=== PATIENT | female | born 1995 | race Caucasian/White ===

== ENCOUNTER 2018-02-17 | Inpatient (IN) ==
[2018-02-17] MEDS ORDERED: Naloxone 0.4 MG/ML INJ IVP PRN (00:16)
[2018-02-17] MEDS ORDERED: Famotidine 20 MG/2 ML VIAL IVP PRN (00:16)
[2018-02-17] MEDS ORDERED: *HR* Nalbuphine 10 MG/ML AMPUL IVP PRN (00:16)
[2018-02-17] MEDS ORDERED: Metoclopramide 10 MG/2 ML VIAL IVP PRN (00:16)
[2018-02-17 00:29] LABS: Basophils % 0.3 %; Eosinophils # 0.1 K/mcL (0.0-0.6); Eosinophils % 0.5 %; Hematocrit 37.8 % (35.3-44.9); Hemoglobin 13.4 g/dL (11.5-15.4); Immature Granulocytes % 0.5 % (0-4); Lymphocytes # 2.2 K/mcL (0.6-4.6); Lymphocytes % 21.8 %; Mean Corpuscular HGB Conc 35.4 g/dL (31.6-35.5); Mean Corpuscular Hemoglobin 32.2 pg (28.0-33.3); Mean Corpuscular Volume 90.9 fL (83.0-100.0); Mean Platelet Volume 10.6 fL (9.4-12.4); Monocytes # 0.7 K/mcL (0.0-1.3); Monocytes % 6.8 %; Neutrophils # 7.2 K/mcL (1.6-8.9); Platelet Count 205 K/mcL (140-400); Red Blood Count 4.16 M/mcL (3.82-4.97); Red Cell Distribution Width 13.1 % (11.5-14.5); Segmented Neutrophils % 70.1 %
[2018-02-17] MEDS ORDERED: Ringers Solution, Lactated 1,000 ML IVC SCH (00:30)
[2018-02-17 00:49] LABS: Amphetamine Screen,Urine Negative ng/mL (Cutoff=1000); Barbiturate Screen,Urine Negative ng/mL (Cutoff=200); Benzodiazepines Screen,Urine Negative ng/mL (Cutoff=200); Cannabinoid Screen,Urine Negative ng/mL (Cutoff = 50); Cocaine Screen,Urine Negative ng/mL (Cutoff= 300); Opiate Screen,Urine Negative ng/mL (Cutoff=300); Phencyclidine Screen,Urine Negative ng/mL (Cutoff=25)
[2018-02-17] MEDS: miSOPROStol 100 MCG TABLET PO PRN ×2 (00:54→06:53)
--- NOTE | 2018-02-17 01:39 | OB/GYN History & Physical ---
Date of Encounter: 02/17/18 Time of Encounter: 01:36 Assessment and Plan (1) Post-dates Current visit: Yes Status: Acute Admit for IOL. Cytotec for induction. Epidural when requested. Anticipate . POC per Dr. Barr. Qualifiers: Post-term type: 40-42 weeks gestation Qualified Code(s): O48.0 - Post-term (2) 40 weeks gestation of Current visit: Yes Status: Acute (3) Umbilical cord, arterial anomaly Current visit: Yes Status: Acute History of Present Illness Chief complaint: IOL HPI: Ms. Parry is a 22 year old female presenting at 40w5d for IOL. This has been complicated by persistent right umbilical vein. No other complaints or problems. Blood type O positive Rubella immune Serologies negative GBS negative Past Med Surg Social Fam HX - Past Medical History Medical history: non-contributory Psychiatric history: no psych history - Past Surgical History Surgical History: no surgical history - Social History Smoking Status: Former smoker Smokeless Tobacco Status: No Alcohol use: none, occasionally Drug use: none - Family History Grandmother Adopted: No Family Member Ethnicity: Non- Twin of Family Member: Yes, Fraternal Living Status: Still Living Hx Family Cardiac Disorders: Yes Hx Family Respiratory Disorders: No Hx Family Cancer: No Hx Family GI Disorders: No Hx Family Genitourinary Disorders: No Hx Family Endocrine Disorder: No Hx Family Musculoskeletal Disorders: No Hx Family Neuromuscular Disorders: No Hx Family Neurologic Disorders: No Hx Family HEENT Disorders: No Hx Family Autoimmune Disorders: No Hx Family Reproductive Disorders: No Hx Family Psychosocial Disorders: No Hx Family Medical Disorders: No Obstetrical History - Pregnancies : 1 Medications and Allergies Rny714/Iron Fumarate/FA/Dss [ 19 Tablet] 1 tab PO DAILY 02/17/18 [ History] 3 Allergy/AdvReac Type Severity Reaction Status Date / Time No Known Allergies Allergy Verified 04/02/15 10:28 Review of System OB All systems PM: reviewed and no additional remarkable complaints except as stated Exam - Constitutional Constitutional: well developed, well nourished, no acute distress - HEENT HEENT: Mucus Membranes Moist - Lungs Respiratory exam: CTAB - Cardiovascular Cardiovascular exam: RRR - Abdomen Abdomen: Present: gravid, non tender - Extremities Extremities exam: normal inspection - Vulva Vulva: bilateral: normal - Vagina Vagina: Present: normal moisture - Cervix Dilation: 1 Effacement: 50 Station: -3 - Anus/Rectum Anus/Rectum: Present: normal perianal skin Results Result Diagrams: 02/17/18 00:10 All other labs normal. - VTE Reasons for not Prescribing Prophylaxis: Treatment not Indicated - Low risk for VTE
--- NOTE | 2018-02-17 08:25 | OB Labor Progress Note ---
Date of Encounter: 02/17/18 Time of Encounter: 08:22 Labor Progress Note - Subjective Subjective: Patient is doing well with then nubain she just received. She denies any concerns. - Cervix Cervix: 1.5/90/-2 - Heart Tones Heart Tones: 145, category 1. + scalp stim with cervical check - Texola Texola: q 1.5-2 minutes - Interventions Interventions: AROM with clear fluid on attempt at placing jain. Jain removed and IUPC placed without difficulty - Plan Plan: Continue with induction.
[2018-02-17] MEDS ORDERED: EPHEDrine 50 MG/ML VIAL IVP PRN (08:55)
[2018-02-17] MEDS ORDERED: Ringers Solution, Lactated 500 ML IVC ONE (08:55)
[2018-02-17] MEDS ORDERED: Epidural Premix (fent/bupiv) 110 ML EP SCH (09:00)
[2018-02-17] MEDS ORDERED: Lidocaine -MPF 1% 5 ML AMPUL ONE (09:07)
--- NOTE | 2018-02-17 10:05 | Anesthesia Evaluation PreOp ---
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 Any Significant HX Other Medical History: Denies Any Significant HX Anesthesia History: No Prior Anesthetic Complications : Yes Alcohol Use: none, occasionally Drug use: none Medications and Allergies Hym827/Iron Fumarate/FA/Dss [ 19 Tablet] 1 tab PO DAILY 02/17/18 [ History] 3 Allergy/AdvReac Type Severity Reaction Status Date / Time No Known Allergies Allergy Verified 04/02/15 10:28 - Meds/Allergy Pre-op Review Medications Reviewed: Yes Allergies Reviewed: Yes Beta Blockers on Current Med List: No Anesthesia Results - Labs 02/17/18 00:10 Anesthesia Exam O2 Sat Height 1.55 m Weight 75.6 kg NPO (# of Hours): 2 Pain Scale: 10 Pain Scale Used: Numeric (1 - 10) - HEENT Pupil (Motor): Pupils equal Mallampati: II Teeth: Normal Oral Opening: Greater than 3 - CHILD CARE ASSOCIATE TEACHER LOC: Oriented CHILD CARE ASSOCIATE TEACHER Motor: Normal RUE, Normal LUE, Normal RLE, Normal LLE, Normal Face CHILD CARE ASSOCIATE TEACHER Sensory: Normal: RUE, LUE, RLE, LLE, Face - Cardiac Rhythm: Regular Murmur: None JVD: No Carotid Bruit: No - Pulmonary Breath Sounds: bilateral Clear Respiratory Effort: Symmetrical Anesthesia Assess/Plan ASA Score: 2 Modified [place] Scale for Level of Consciousness: Cooperative, oriented, and tranquil Anesthetic Plan: General (plan b), Regional (plan a) Autologous Blood: Yes Monitoring Plan: Standard Monitors
--- NOTE | 2018-02-17 10:08 | Anesthesia Procedures ---
Date of Encounter: 02/17/18 Time of Encounter: 10:05 Procedures: Anesthesia - Epidural/Spinal Patient ID/Chart reviewed: Yes Patient examined: Yes OB Eval: Gestational age: 40 OB Eval: : 1 OB Eval: Hx Para: 0 OB Eval: Dilated at (cm): 1 OB Eval: Contractions: Non-stressed pattern Consent Obtained: Yes Supplemental Oxygen: None/Room Air Site Prep: Aseptic Technique, Sterile prep and drape, Povidone-Iodine 1% Patient position: upright Local Anesthetic: Lidocaine 1% Amount of Local Anesthetic used: 3 Touhy Needle Gauge: 18 Touhy Needle Depth (cm): 7 Catheter Depth at Skin (cm): 20 Test Dose (1.5% Lido + Epi): Volume given (mls): 5 Test Dose Result: Negative Loading Dose: Other: 10mls of epidural pharm bag premix solution Loading Dose Administered: Thru Catheter Infusion Med: 0.125% Bupivacaine w/ 2 mcg/ml Fentanyl Infusion Rate (mls/hr): 14 ([id number]) Catheter Secured in Place: Tegaderm, Tape Interspace Used: L4-L5 Loss of Resistance (RACHAEL): Yes Blood: No CSF: No Paresthesia: No Procedure: pt tolerated procedure well. no complications. vss. fhr stable. see nursing notes for complete vitals.
[2018-02-17] MEDS ORDERED: Oxytocin 20 units/ LR 1000 mL 20 UNIT/1,000 ML BAG IVC SCH (12:45)
[2018-02-17] MEDS: Ondansetron 4 MG/2 ML VIAL IVP PRN (16:58)
[2018-02-17] MEDS ORDERED: *HR* FentaNYL (PF) 100 MCG/2 ML VIAL ONE (17:05)
[2018-02-17] MEDS ORDERED: *HR* ROPIVACAINE 1% PF 100 MG/10 ML VIAL ONE (17:06)
--- NOTE | 2018-02-17 17:14 | Anesthesia Progress Note ---
Date of Encounter: 02/17/18 Time of Encounter: 17:13 Anesthesia Note - Note Note: 02/17/18 17:13 called for increased pain during contractions. 8cm. vss. fhr stable. bolus given of 2% lido 3ml and 1% ropi 3ml with 100mcg fentanyl. gtt increased to 18ml /hr.
--- NOTE | 2018-02-17 21:03 | OB Labor Progress Note ---
Date of Encounter: 02/17/18 Time of Encounter: 21:02 Labor Progress Note - Subjective Subjective: Pt comfortable with epidural - Cervix Cervix: 8-9 - Heart Tones Heart Tones: 150/moderate/early and variables/ - Mokena Mokena: 2-3 - Plan Plan: frequent repositioning anticipate
[2018-02-18] MEDS: Ondansetron 4 MG/2 ML VIAL IVP PRN (01:46)
[2018-02-18] MEDS ORDERED: Chloroprocaine/PF 20 ML VIAL INFILT ONE (03:41)
[2018-02-18] MEDS ORDERED: Water for inj. (sterile) 20 ML IV ONE (03:48)
[2018-02-18] MEDS ORDERED: Ondansetron 4 MG/2 ML VIAL ONE (03:57)
[2018-02-18] MEDS ORDERED: Dexamethasone 4 MG/ML VIAL ONE (03:57)
[2018-02-18] MEDS ORDERED: Propofol 500 MG/50 ML INFUS..BTL ONE (04:00)
[2018-02-18] MEDS ORDERED: *HR* Succinylcholine 200 MG/10 ML VIAL IVP ONE (04:00)
[2018-02-18] MEDS ORDERED: Morphine Sulfate/PF 5mg/10mL Vial ONE (04:01)
[2018-02-18] MEDS ORDERED: Water for inj. (sterile) 10 ML IV ONE (04:04)
[2018-02-18] MEDS ORDERED: *HR* Meperidine 25 MG/ML SYRINGE IVP PRN (04:15)
[2018-02-18] MEDS ORDERED: Ondansetron 4 MG/2 ML VIAL IVP ONE (04:15)
[2018-02-18] MEDS ORDERED: *HR* HYDROmorphone 2 MG TABLET PO PRN (04:15)
[2018-02-18] MEDS ORDERED: Ringers Solution, Lactated 1,000 ML IVC SCH (04:15)
[2018-02-18] MEDS ORDERED: *HR* Promethazine 25 MG/ML VIAL IVP PRN (04:15)
[2018-02-18] MEDS ORDERED: *HR* Morphine 2 MG/ML SYRINGE IVP PRN ×2 (04:15→06:52)
[2018-02-18] MEDS ORDERED: *HR* OxyCODONE Immed Rel 5 MG TABLET PO PRN ×2 (04:15→08:12)
[2018-02-18] MEDS ORDERED: Albuterol 2.5 MG/3 ML NEBULIZER IH ONE (04:15)
[2018-02-18] MEDS ORDERED: Acetaminophen IV 1,000 MG/100 ML INFUS..BTL IVPB ONE (04:15)
[2018-02-18] MEDS ORDERED: *HR* Promethazine 25 MG/ML VIAL ONE (04:47)
[2018-02-18] MEDS ORDERED: Simethicone 80 MG TAB.CHEW PO PRN (08:12)
[2018-02-18] MEDS ORDERED: Oxytocin 20 units/ LR 1000 mL 20 UNIT/1,000 ML BAG IVC SCH ×2 (08:12)
[2018-02-18] MEDS ORDERED: Naloxone 0.4 MG/ML INJ IVP PRN (08:12)
[2018-02-18] MEDS ORDERED: Sennosides 8.6 MG TABLET PO PRN (08:12)
[2018-02-18] MEDS ORDERED: Acetaminophen 325 MG TABLET PO PRN ×2 (08:12→21:39)
[2018-02-18] MEDS ORDERED: Metoclopramide 10 MG/2 ML VIAL IVP PRN (08:12)
[2018-02-18] MEDS ORDERED: Ondansetron 4 MG/2 ML VIAL IVP PRN (08:12)
[2018-02-18] MEDS: Prenatal Vit/FA 1 EACH TABLET PO SCH (09:00)
--- NOTE | 2018-02-18 13:50 | OB/GYN Procedure Note ---
Section - Date of procedure: 02/18/18 Preop diagnosis: category 3 FHT tracing Post-op diagnosis: same Procedure: section, primary low transverse Surgeon: Claire Almanza Blood Loss: 500 Was there an ob gyn physician assistant present: Yes Pump Station Operator: Marlen Mooney Anesthesiologist: Sara Barahona Piano Case Maker: Moe Blackwell Anesthesia Type: General section complications: none Disposition: L&D Recovery Room Specimens: Cord blood, Cord gasses - Infant (s) A Infant Delivery Date: 02/18/18 Infant Delivery Time: 03:56 Presentation: vertex Gender: Male Viability: Viable Pounds: 8 Ounces: 7 Gram Weight: 3.815 kg at 1 minute: 6 at 5 minutes: 8 Shoulder Dystocia: not encountered Specimens collected: cord blood, venous cord gases, arterial cord gases Placenta: spontaneous Cord: 3 umbilical vessels - Narrative Narrative: Patient was taken to the operative suite and her epidural was dosed. She was then prepped and draped in normal sterile fashion in the dorsal supine position. Timeout was then performed. Antibiotics were given at room time. SCDs are on and active. Pfannenstiel skin incision is then made and carried through to underlying layer of fascia with the Bovie. The fascia was then incised in the midline and incision extended laterally with the Narayanan scissors. The fascia was tented up and dissected off the rectus muscles sharply. The rectus muscles were in the midline and the peritoneum was tented up and entered sharply with the Metzenbaum scissors. The peritoneal incision was then extended bluntly. At this point in the procedure the epidural was inadequate for anesthesia patient was placed under general anesthesia without difficulty. The bladder blade was then inserted. A low transverse uterine incision was then made. The vertex was brought to the incision and a Kiwi vacuum was placed. The infant was delivered using fundal pressure. There was no nuchal cord. Cord was clamped and cut. was handed to waiting nursery staff. A segment of cord was collected for cord gases. Cord blood was collected. Placenta delivered spontaneously complete and intact with a three-vessel cord. The uterus was cleared of all clots and debris using moist laparotomy sponge. The uterine incision was then closed using 0 Vicryl in a running locked fashion. A second layer of the same suture was used to obtain excellent hemostasis. The abdomen was then cleared of all clots and debris using copious irrigation. The bladder was instilled with 200 mL sterile bladder and found to be intact. The fascial incision was then closed using 0 Vicryl in a running fashion. The skin was closed using 4-0 Vicryl in a subcuticular fashion. Steri- Strips and sterile dressing are then placed. Mother is taken to recovery in stable condition. had previously been taken to the nursery in stable condition.
[2018-02-18] MEDS: Ibuprofen 600 MG TABLET PO PRN ×2 (17:29→23:32)
[2018-02-19] MEDS: Ibuprofen 600 MG TABLET PO PRN ×2 (05:55→16:07)
[2018-02-19 06:15] LABS: Basophils % 0.2 %; Eosinophils # 0.1 K/mcL (0.0-0.6); Eosinophils % 0.7 %; Hematocrit 32.2 % (35.3-44.9); Immature Granulocytes % 0.6 % (0-4); Lymphocytes # 1.8 K/mcL (0.6-4.6); Lymphocytes % 14.8 %; Mean Corpuscular HGB Conc 34.2 g/dL (31.6-35.5); Mean Corpuscular Hemoglobin 32.3 pg (28.0-33.3); Mean Corpuscular Volume 94.4 fL (83.0-100.0); Mean Platelet Volume 10.3 fL (9.4-12.4); Monocytes # 0.7 K/mcL (0.0-1.3); Monocytes % 6.2 %; Neutrophils # 9.2 K/mcL (1.6-8.9); Platelet Count 153 K/mcL (140-400); Red Blood Count 3.41 M/mcL (3.82-4.97); Red Cell Distribution Width 13.7 % (11.5-14.5); Segmented Neutrophils % 77.5 %
[2018-02-19] MEDS: Prenatal Vit/FA 1 EACH TABLET PO SCH (08:31)
--- NOTE | 2018-02-19 10:20 | OB/GYN Progress Note ---
Date of Encounter: 02/19/18 Time of Encounter: 10:18 - Assessment and Plan (1) Status post section Current Visit: Yes Status: Acute Stable POD#1 Continue current management plan anticipate discharge tomorrow Subjective - Subjective Interval history: Pain well managed on po pain medication, +flatus, tolerates diet, . Patient reports: appetite normal, voiding normally, pain well controlled, ambulating normally : doing well, nursing well Objective - Vital Signs Latest vital signs: Vital Signs Temp Pulse Pulse Resp BP Pulse Ox 02/19/18 09:48 84 16 02/19/18 08:41 97.9 F 93 16 107/63 97 02/18/18 23:33 97.6 F 97 18 112/73 97 02/18/18 19:35 97.7 F 99 16 114/73 99 02/18/18 15:35 98.3 F 101 16 115/72 02/18/18 10:39 98.9 F 77 16 119/75 98 Intake and Output 02/18/18 02/19/18 02/19/18 23:59 07:59 15:59 Intake Total 800 / 800 200 / 200 Output Total 1100 / 1100 800 / 800 Balance -300 / -300 -600 / -600 Intake: Oral 800 / 800 200 / 200 Output: Urine 550 / 550 Catheter 550 / 550 800 / 800 Other: Meal Dinner Percent of Meal Consumed 100% - Exam Lungs: bilateral: normal Chest: Normal S1, Normal S2 Extremities: Present: edema Abdomen: Present: soft Incision: Present: dressed Uterus: Present: firm (U) - Labs Labs: Laboratory Results - last 24 hr 02/19/18 05:52 WBC 11.8 H RBC 3.41 L Hgb 11.0 L D Hct 32.2 L MCV 94.4 MCH 32.3 MCHC 34.2 RDW 13.7 Plt Count 153 MPV 10.3 Immature Gran % 0.6 Seg Neutrophils % 77.5 Lymphocytes % 14.8 Monocytes % 6.2 Eosinophils % 0.7 Basophils % 0.2 Neutrophils # 9.2 H Lymphocytes # 1.8 Monocytes # 0.7 Eosinophils # 0.1 Basophils # 0.0
[2018-02-19] MEDS: *HR* OxyCODONE/APAP 5/325 TABLET PO PRN ×2 (12:05→21:37)
[2018-02-20] MEDS: Ibuprofen 600 MG TABLET PO PRN ×2 (01:52→11:22)
[2018-02-20] MEDS: *HR* OxyCODONE/APAP 5/325 TABLET PO PRN (06:00)
--- NOTE | 2018-02-20 07:57 | Anesthesia Progress Note ---
Date of Encounter: 02/20/18 Time of Encounter: 07:38 Anesthesia Note - Note Note: 02/20/18 07:50 RN questioned about right leg issues, upon questioning the patient reports some minor weakness in right leg when walking and that her right leg feels funny. has been ambulating with assistance, and reports that her symptoms have improved from what they were after her . questions about pre-existing problems sensory/motor patient denied all questions of pain, radiculopathies, pins and needles feelings, no dependent or situational sensory/motor issues. she states was only in lithotomy and pushing for 30min. upon exam minor weakness noted to L4-5 to ankle dorsiflexion 3/5 vs 5/5 to right. upon questioning OB physicians consult was placed for neuro eval. for questionable peroneal nerve damage. patient updated on course of treatment. epidural 02/17 =1000 easy placement, patient reports it was easy no problems bolus epidural 02/17 =1715 STAT 02/18 =0400 reports she was numb but was freaking out that is why she was put asleep, no reported difficulties with cath removal. please call anesthesia for any questions or concerns. thank you for calling us in regards to this condition. 02/20/18 07:59 02/20/18 08:15
[2018-02-20 08:10] VITALS: BP 118/76
[2018-02-20] MEDS: Prenatal Vit/FA 1 EACH TABLET PO SCH (11:23)
--- NOTE | 2018-02-20 16:24 | Neurology - Consult Note ---
Date of Encounter: 02/20/18 Time of Encounter: 16:20 Assessment and Plan (1) Lumbosacral plexopathy Current Visit: Yes Status: Acute It is my suspicion that we are dealing primarily with lumbosacral plexopathy due to malpositioning of the fetus in the canal. This point he does not seem that the issue was at all pertaining to the anesthetic. Generally a traumatic nerve injuries of this nature may take days to weeks to heal, but by and large the prognosis is good. As long as she has a good support system at home she may be discharged at your discretion. I do not feel that further testing is necessary particularly since she is significantly improved in such a short period of time. I will reevaluate her at your request. History of Present Illness HPI: Chart was reviewed, the patient was seen and examined. Ms. Parry is a 22 year old female who is being seen for neurologic evaluation secondary to weakness of the right lower extremity status post section. Apparently during labor the fetus began showing signs of distress therefore the decision was made to perform a section. Patient was in the lithotomy position and pushing for only about 30 minutes to the decision to perform the section. Patient states that during labor contractions she initially felt pain radiating into the left groin. She did not notice difficulty with the right leg until after the anesthesia wore off 2 days ago which when the procedure was completed. She experienced total weakness of the entire leg along with some swelling of the right leg. She states however symptoms have improved but are not back to normal. She states that the whole leg was weak. She was initially not able to raise it off the bed and not able to dorsiflex or plantarflex the foot. She does not denies any difficulty as far she knows with the epidural. She denies any incontinence of urine. She has not had a bowel movement but has been passing flatus. She denied any strokelike symptoms of confusion. As far as she knows her labor went normally up until the decision to do the section. Past Med Surg Social Fam HX - Past Medical History Medical history: non-contributory Psychiatric history: no psych history - Past Surgical History Surgical History: no surgical history - Social History Smoking Status: Former smoker Smokeless Tobacco Status: No Alcohol use: none, occasionally Drug use: none - Family History Grandmother Adopted: No Family Member Ethnicity: Non- Twin of Family Member: Yes, Fraternal Living Status: Still Living Hx Family Cardiac Disorders: Yes Hx Family Respiratory Disorders: No Hx Family Cancer: No Hx Family GI Disorders: No Hx Family Genitourinary Disorders: No Hx Family Endocrine Disorder: No Hx Family Musculoskeletal Disorders: No Hx Family Neuromuscular Disorders: No Hx Family Neurologic Disorders: No Hx Family HEENT Disorders: No Hx Family Autoimmune Disorders: No Hx Family Reproductive Disorders: No Hx Family Psychosocial Disorders: No Hx Family Medical Disorders: No Medications and Allergies Spz901/Iron Fumarate/FA/Dss [ 19 Tablet] 1 tab PO DAILY 02/17/18 [ History] 3 Allergy/AdvReac Type Severity Reaction Status Date / Time No Known Allergies Allergy Verified 04/02/15 10:28 All Systems: The remainder of the systems were reviewed and are negative Review of Systems: The balance of the systems review is negative. Physical Examination - Vital Signs Vital Signs: Initial Vital Signs Temp Pulse Resp BP Pulse Ox 98.5 F 82 14 118/64 98 02/18/18 07:30 02/18/18 07:30 02/18/18 07:30 02/18/18 07:30 02/18/18 07:30 - Constitutional General appearance: comfortable - Neurologic Motor examination - right side: 3/5: hip flexors, tibialis Anterior, quadriceps , 4/5: toe extension (EHL), plantarflexion, 5/5: deltoids, biceps, triceps, head of english Motor examination - left side: 5/5: deltoids, biceps, triceps, hip flexors, head of english , quadriceps, tibialis Anterior, toe extension (EHL), plantarflexion Detailed sensory examination: other (There is hypoesthesia of the entire right lower extremity without regard for dermatomal pattern.) Reflex and gait examination: other (Deep tendon reflexes are 2+ symmetrically in the biceps, triceps, brachial radialis, patellar, and Achilles. No Babinski or clonus are present.) Mental Status Examination: awake, alert, oriented to person, oriented to place, oriented to time, follows commands appropriately, answers questions appropriately, no agnosia, no aphasia, no aproxia Cranial nerve examination: PERRL, EOMI, visual otny intact, corneal reflexes brisk symmetrically, sensory to face intact, mastication intact, no facial asymmetry is present, no dysarthria, hearing is intact symmetrically, soft palate elevates bilaterally upon phonation, gag reflex intact, flexes SCM and trapezius muscles symmetrically with full power, tongue protrudes midline, no atrophy or facial fasiculations present Cerebellar examination: no dysmetria, performs finger to nose and heel to jensen symmetrically without ataxia, no truncal ataxia, no difficulty with rapid alternating movements Results - Laboratory Findings CBC and BMP: 02/19/18 05:52 Abnormal lab findings: Abnormal lab results WBC 11.8 K/mcL (4.3-11.1) H 02/19/18 05:52 RBC 3.41 M/mcL (3.82-4.97) L 02/19/18 05:52 Hgb 11.0 g/dL (11.5-15.4) L D 02/19/18 05:52 Hct 32.2 % (35.3-44.9) L 02/19/18 05:52 Neutrophils # 9.2 K/mcL (1.6-8.9) H 02/19/18 05:52 Consult Discharge Plan - Plan Referrals: Nicanor Richardson DO [Primary Care Provider] -
--- NOTE | 2018-02-20 16:59 | Discharge Summary ---
Date of Encounter: 02/20/18 Time of Encounter: 16:59 - Discharge Diagnosis (1) Breast feeding status of mother Priority: Secondary Status: Acute Comments: support prn (2) Lumbosacral plexopathy Priority: Secondary Status: Acute Comments: Neurology consult completed (3) Status post section Priority: Primary Status: Acute Comments: Continue routine postop/ care discharge home today follow up with Dr. Barr in 2 weeks for incision check - Discharge Medications Prescriptions: OxyCODONE/APAP 5/325 [Percocet 5/325 MG] 1 each PO Q4HR PRN 5 Days #30 tablet PRN Reason: Moderate pain 4-6 Ibuprofen [Motrin] 600 mg PO Q6HR PRN #60 tablet PRN Reason: Cramping Breast Pump [BREAST PUMP] 1 each .ROUTE AD #1 each Home Medications: Var878/Iron Fumarate/FA/Dss [ 19 Tablet] 1 tab PO DAILY 02/17/18 [ History] Breast Pump [BREAST PUMP] 1 each .ROUTE AD #1 each 02/20/18 [Rx] Docusate [Colace] 100 mg PO BID capsule 02/20/18 [Rx] Ibuprofen [Motrin] 600 mg PO Q6HR PRN #60 tablet 02/20/18 [Rx] OxyCODONE/APAP 5/325 [Percocet 5/325 MG] 1 each PO Q4HR PRN 5 Days #30 tablet [Rx] Simethicone [Gas-X] 80 mg PO TID PRN tab.chew 02/20/18 [Rx] Allergies/Adverse Reactions: 3 Allergy/AdvReac Type Severity Reaction Status Date / Time No Known Allergies Allergy Verified 04/02/15 10:28 Data Procedures and tests throughout hospitalization: Laboratory Tests 02/17/18 02/17/18 02/19/18 00:10 00:10 05:52 WBC 10.2 11.8 H RBC 4.16 3.41 L Hgb 13.4 11.0 L D Hct 37.8 32.2 L MCV 90.9 94.4 MCH 32.2 32.3 MCHC 35.4 34.2 RDW 13.1 13.7 Plt Count 205 153 MPV 10.6 10.3 Immature Gran % 0.5 0.6 Seg Neutrophils % 70.1 77.5 Lymphocytes % 21.8 14.8 Monocytes % 6.8 6.2 Eosinophils % 0.5 0.7 Basophils % 0.3 0.2 Neutrophils # 7.2 9.2 H Lymphocytes # 2.2 1.8 Monocytes # 0.7 0.7 Eosinophils # 0.1 0.1 Basophils # 0.0 0.0 Urine Opiates Screen Negative Ur Barbiturates Screen Negative Ur Phencyclidine Scrn Negative Ur Amphetamines Screen Negative U Benzodiazepines Scrn Negative Urine Cocaine Screen Negative U Marijuana (THC) Screen Negative Ur Drug Screen Interp See Below Date of admission: 02/17/18 00:00 Primary care physician: Nicanor Almaguer Colopy Consults: 02/20/18 08:17 Consult to Neurology [CONS] Routine Consulting Provider: Neurology [facility] Reason for Consult: status post section with epidural, having right weakness noted on right foot with dorsiflexion Time Notified: 08:18 Call Completed: Yes Discharging clinician: Francie Link Anticipated date of discharge: 02/20/18 - Patient Status Disposition: Home, Self-Care Condition: Good Functional capacity at discharge: independent ambulation - Discharge Instructions Follow Up With: Stella Hercules CNM [Advanced Practice Nurse] - 03/09/18 10:15 am Ángel Young DO [Partnered Physician] - (Schedule a follow-up if leg numbness worsens) Claire Barr DO [Partnered Physician] - Hospital Course Delivery: section Episiotomy: none Laceration: none Other procedures: none complications: none Discharge diagnosis: IUP at term delivered [place] baby: male (breast feeding) Time Attestation: Total time spent providing and/or coordinating discharge services: Time Spent: Less than 30 minutes - VTE Reasons for not Prescribing Prophylaxis: Treatment not Indicated - Low risk for VTE Documentation of Mechanical Device: Intermittent pneumatic compression device Exam - Constitutional Vitals: Temp Pulse Resp BP Pulse Ox 97.6 F 88 16 118/76 98 02/20/18 08:09 02/20/18 08:09 02/20/18 08:09 02/20/18 08:09 02/20/18 08:09 General appearance IM: cooperative, A&O X 3, pleasant, no acute distress - Respiratory Respiratory exam: Present: CTAB - Cardiovascular Cardiovascular exam IM: Present: JVD - GI/Abdominal GI/Abdominal exam IM: normal bowel sounds Incision: normal, intact - Rectal Rectal exam: deferred - Uterine Tone: Firm Uterus Position: 1 Finger Below Umbilicus, Midline - Extremities Exam Extremities exam IM: Present: full ROM, normal inspection, radial pulses palpable and symmetrical - Neurological Exam Neurological exam: alert, normal gait, oriented X3, reflexes normal
== END 2018-02-20 17:40 | disposition home or self-care (01) | DRG 765 ==
LOC: 1NENULAB → 1NENUOBS 02-18 07:38
PROVIDERS: ADMIT Obstetrics & Gynecology; ATTEND Obstetrics & Gynecology

== ENCOUNTER 2020-02-14 11:30 | Inpatient (IN) ==
[2020-02-14] MEDS ORDERED: CeFAZolin 2,000 MG/50 ML BAG IVPB ONE (11:39)
[2020-02-14] MEDS ORDERED: Metoclopramide 10 MG/2 ML VIAL IVP ONE (11:39)
[2020-02-14] MEDS ORDERED: Ringers Solution, Lactated 1,000 ML IVC ONE (11:39)
[2020-02-14] MEDS ORDERED: Famotidine 20 MG/2 ML VIAL IVP ONE (11:39)
[2020-02-14] MEDS ORDERED: Ringers Solution, Lactated 1,000 ML IVC SCH (11:45)
[2020-02-14 12:36] LABS: Basophils % 0.2 %; Eosinophils % 0.2 %; Hematocrit 42.3 % (35.3-44.9); Hemoglobin 14.3 g/dL (11.5-15.4); Immature Granulocytes % 0.5 % (0-4); Lymphocytes # 1.9 K/mcL (0.6-4.6); Lymphocytes % 21.4 %; Mean Corpuscular HGB Conc 33.8 g/dL (31.6-35.5); Mean Corpuscular Hemoglobin 31.2 pg (28.0-33.3); Mean Corpuscular Volume 92.4 fL (83.0-100.0); Mean Platelet Volume 10.3 fL (9.4-12.4); Monocytes # 0.4 K/mcL (0.0-1.3); Monocytes % 4.4 %; Neutrophils # 6.5 K/mcL (1.6-8.9); Platelet Count 190 K/mcL (140-400); Red Blood Count 4.58 M/mcL (3.82-4.97); Red Cell Distribution Width 12.9 % (11.5-14.5); Segmented Neutrophils % 73.3 %; White Blood Count 8.8 K/mcL (4.3-11.1)
[2020-02-14 12:45] LABS: Amphetamine Screen,Urine Negative ng/mL (Cutoff=1000); Barbiturate Screen,Urine Negative ng/mL (Cutoff=200); Benzodiazepines Screen,Urine Negative ng/mL (Cutoff=200); Cannabinoid Screen,Urine Negative ng/mL (Cutoff = 50); Cocaine Screen,Urine Negative ng/mL (Cutoff= 300); Opiate Screen,Urine Negative ng/mL (Cutoff=300); Phencyclidine Screen,Urine Negative ng/mL (Cutoff=25)
[2020-02-14] MEDS ORDERED: Acetaminophen IV 1,000 MG/100 ML INFUS..BTL IVPB ONE (12:59)
[2020-02-14] MEDS ORDERED: *HR* HYDROmorphone (PF) 1 MG/ML SYRINGE IVP PRN (12:59)
[2020-02-14] MEDS ORDERED: Ondansetron 4 MG/2 ML VIAL IVP PRN ×2 (12:59→17:00)
[2020-02-14] MEDS ORDERED: *HR* FentaNYL (PF) 100 MCG/2 ML VIAL ONE (13:03)
[2020-02-14] MEDS ORDERED: *HR* Morphine Sulfate/PF 10 MG/10 ML AMPUL ONE (13:03)
[2020-02-14] MEDS ORDERED: *HR* Oxytocin 10 UNIT/ML VIAL IM ONE (13:03)
[2020-02-14] MEDS ORDERED: Oxytocin 20 units/ LR 1000 mL 20 UNIT/1,000 ML BAG IVC ONE (14:27)
[2020-02-14] MEDS ORDERED: Metoclopramide 10 MG/2 ML VIAL IVP PRN (17:00)
[2020-02-14] MEDS ORDERED: Oxytocin 20 units/ LR 1000 mL 20 UNIT/1,000 ML BAG IVC SCH ×2 (17:00)
[2020-02-14] MEDS ORDERED: Naloxone 0.4 MG/ML INJ IVP PRN (17:00)
[2020-02-14] MEDS ORDERED: Sennosides 8.6 MG TABLET PO PRN (17:00)
[2020-02-14] MEDS ORDERED: Acetaminophen 325 MG TABLET PO PRN (17:00)
[2020-02-14] MEDS ORDERED: *HR* OxyCODONE Immed Rel 5 MG TABLET PO PRN (17:00)
[2020-02-14] MEDS: *HR* OxyCODONE/APAP 5/325 TABLET PO PRN (17:11)
[2020-02-14] MEDS: Simethicone 80 MG TAB.CHEW PO PRN (20:17)
[2020-02-14] MEDS: Ibuprofen 600 MG TABLET PO PRN (20:18)
[2020-02-15] MEDS: Ibuprofen 600 MG TABLET PO PRN ×4 (02:43→19:58)
[2020-02-15] MEDS: Prenatal Vit/FA 1 EACH TABLET PO SCH (08:55)
[2020-02-15] MEDS: *HR* OxyCODONE/APAP 5/325 TABLET PO PRN (10:46)
[2020-02-15] MEDS: Simethicone 80 MG TAB.CHEW PO PRN (19:59)
[2020-02-16] MEDS: *HR* OxyCODONE/APAP 5/325 TABLET PO PRN ×3 (00:49→11:56)
[2020-02-16] MEDS: Ibuprofen 600 MG TABLET PO PRN (06:38)
[2020-02-16] MEDS: Prenatal Vit/FA 1 EACH TABLET PO SCH (07:34)
[2020-02-16 08:42] VITALS: BP 115/74
== END 2020-02-16 13:10 | disposition home or self-care (01) | DRG 788 ==
LOC: 1NENULAB 11:30 → 1NENUOBS 16:58
PROVIDERS: ADMIT Obstetrics & Gynecology; ATTEND Obstetrics & Gynecology